=== PATIENT | female | born 1975 ===

== ENCOUNTER 2021-10-18 05:05 | Day surgery (SDC) | payer OTHER ==
[~2021-10-18] VITALS: Ht 167.6 cm; Wt 90.7 kg
[~2021-10-18 05:05] MED LIST: BUSPAR PO; CARAFATE1 GM PO; CLONAZEPAM1 MG PO; INTESTINEX680 M1 PO; LEVOTHYROXINE25 MCG PO; LIPITOR40 MG PO; PEPCID AC20 MG PO; PLAVIX75 MG PO; PROTONIX40 MG PO; SINGULAIR10 MG PO; TOPROL XL25 M1 PO; TRAZODONE HCL150 MG PO
[2021-10-18] MEDS ORDERED: MACROBID 100 M100 MG PO (11:24)
[2021-10-18] MEDS ORDERED: ULTRACET PO (11:25)
== END 2021-10-18 15:10 | disposition home or self-care (01) ==
LOC: CIR.AMB 05:05
PROVIDERS: ATTEND Obstetrics & Gynecology Gynecology
DX: N81.11 Cystocele, midline (principal); N81.12 Cystocele, lateral; Z20.822 Contact with and (suspected) exposure to COVID-19; Z88.0 Allergy status to penicillin; I10 Essential (primary) hypertension; E78.5 Hyperlipidemia, unspecified; J45.909 Unspecified asthma, uncomplicated; Z86.16 Personal history of COVID-19; Z99.89 Dependence on other enabling machines and devices; G47.33 Obstructive sleep apnea (adult) (pediatric); E03.9 Hypothyroidism, unspecified; M19.90 Unspecified osteoarthritis, unspecified site; F31.89 Other bipolar disorder; G43.909 Migraine, unspecified, not intractable, without status migrainosus; Z86.73 Personal history of transient ischemic attack (TIA), and cerebral infarction without residual deficits; M79.7 Fibromyalgia; E66.9 Obesity, unspecified; Z79.02 Long term (current) use of antithrombotics/antiplatelets